=== PATIENT | female | born 2000 | race American Indian/Alaskan Native ===

== ENCOUNTER 2021-12-02 04:50 | Emergency (ER) | payer OTHER ==
[2021-12-02] MEDS ORDERED: LORazepam 1 MG TAB PO ONE (04:54)
[2021-12-02 04:57] VITALS: BP 170/98
--- NOTE | 2021-12-02 04:59 | Emergency Department Report ---
ED Anxiety HPI - General Stated Complaint: ANXIETY Time Seen by Provider: 12/02/21 04:54 Source: patient, EMS Mode of arrival: Ambulatory Limitations: No Limitations - History of Present Illness Initial Comments: 21 years old with history of bipolar chronic PTSD anxiety , on meds for it but recently she was kicked out of her home situation and became homless and stopped taking meds because she has BV and on meds for it no SI or HI MD Complaint: anxiety, heart racing -: Gradual, days(s) Symptoms: palpitations Place: other (homeless ) Associated symptoms: palpitations ED Review of Systems ROS: Stated complaint: ANXIETY Other details as noted in HPI Constitutional: denies: chills, fever Eyes: denies: eye pain, eye discharge, vision change ENT: denies: ear pain, throat pain Respiratory: denies: cough, shortness of breath, wheezing Cardiovascular: denies: chest pain, palpitations Endocrine: no symptoms reported Gastrointestinal: denies: abdominal pain, nausea, diarrhea Genitourinary: denies: urgency, dysuria, discharge Musculoskeletal: denies: back pain, joint swelling, arthralgia Skin: denies: rash, lesions Neurological: denies: headache, weakness, paresthesias Psychiatric: denies: anxiety, depression Hematological/Lymphatic: denies: easy bleeding, easy bruising ED Past Medical Hx - Past Medical History Hx Psychiatric Treatment: Yes ED Physical Exam - General General appearance: alert, in no apparent distress - Head Head exam: Present: atraumatic, normocephalic - Eye Eye exam: Present: normal appearance - ENT ENT exam: Present: mucous membranes moist - Neck Neck exam: Present: normal inspection - Respiratory Respiratory exam: Present: normal lung sounds bilaterally. Absent: respiratory distress - Cardiovascular Cardiovascular Exam: Present: regular rate, normal rhythm. Absent: systolic murmur, diastolic murmur, rubs, gallop - GI/Abdominal GI/Abdominal exam: Present: soft, normal bowel sounds - Extremities Exam Extremities exam: Present: normal inspection - Back Exam Back exam: Present: normal inspection - Neurological Exam Neurological exam: Present: alert, oriented X3 - Psychiatric Psychiatric exam: Present: anxious. Absent: depressed, agitated, homicidal ideation, suicidal ideation - Skin Skin exam: Present: warm, dry, intact, normal color. Absent: rash Critical care attestation.: If time is entered above; I have spent that time in minutes in the direct care of this critically ill patient, excluding procedure time. ED Disposition Clinical Impression: Anxiety Disposition: HOME / SELF CARE / HOMELESS Is pt being admited?: No Does the pt Need Aspirin: No Condition: Stable Instructions: Supporting Someone With Anxiety, Managing Anxiety, Adult
== END 2021-12-02 05:21 | disposition home or self-care (01) ==
LOC: ED 04:50
DX: F41.9 Anxiety disorder, unspecified (principal); F31.9 Bipolar disorder, unspecified; F43.12 Post-traumatic stress disorder, chronic
CPT/HCPCS: 99283

== ENCOUNTER 2021-12-08 01:04 | Emergency (ER) | payer OTHER ==
[2021-12-08 01:08] VITALS: BP 129/81
[2021-12-08 05:31] LABS: Bilirubin,Urine NEG (Negative); Blood,Urine NEG (Negative); Color,Urine Straw (Yellow); Mucus,Urine FEW /HPF; Protein,Urine <15 mg/dL mg/dL (Negative); Urobilinogen,Urine < 2.0 mg/dL (<2.0)
[2021-12-08 05:33] LABS: HCG Qualitative,Urine Negative (Negative)
--- NOTE | 2021-12-08 05:46 | Emergency Department Report ---
ED Female HPI - General Chief complaint: Chest Pain Stated complaint: CHEST PAIN Source: EMS Mode of arrival: Ambulatory Limitations: No Limitations - History of Present Illness Initial comments: Patient is a A0 21-year-old -[place] female with a history of panic attacks, anxiety and depression, heart murmur, PTSD, bipolar disorder, personality disorder who presents to the ED with complaint of acute onset persistent vaginal discharge for the last 1 week. Patient also states that she has been homeless for the last 1 month and has been sleeping in different sh elters but in the last 2 weeks she has been on the street with no place to go. Patient states that her 9-month-old daughter was also taken from her. Patient states that her anxiety has worsened in the last 1 week. Patient denies suicidal or homicidal ideation, hallucination, delusional thoughts, change in vision, nausea, vomiting, chest pain, shortness of breath, abdominal pain, fever, chills, cough, sore throat or change in vision, dysuria, urinary frequency and urgency and vaginal bleeding. MD Complaint: vaginal discharge, other (wants to be checked for Bacterial vaginosis, trichomonas; ant smedication refills for anxiety) -: Sudden, week(s) (2) Location: other (vaginal) Severity: mild Severity scale (0 -10): 0 Quality: dull Consistency: intermittent Improves with: none Worsens with: none Are you Now?: No Associated Symptoms: denies other symptoms, vaginal discharge, other (anxiety). denies: vaginal bleeding, abdominal pain, fever/chills, headaches, dysuria, hematuria, rash, seizure, shortness of breath, syncope, weakness - Related Data Sexually active: Yes : 1 Para: 1 A: 0 Previous Rx's Medication Instructions Recorded Last Taken Type Gabapentin 300 mg PO BID #60 cap 12/08/21 Unknown Rx Venlafaxine HCl [Venlafaxine] 50 mg PO DAILY #30 tab 12/08/21 Unknown Rx metroNIDAZOLE [Flagyl] 500 mg PO Q12HR #14 tab 12/08/21 Unknown Rx Allergies Allergy/AdvReac Type Severity Reaction Status Date / Time No Known Allergies Allergy Verified 12/08/21 01:09 ED Review of Systems ROS: Stated complaint: CHEST PAIN Other details as noted in HPI Constitutional: malaise. denies: chills, fever Eyes: denies: eye pain, eye discharge, vision change ENT: denies: ear pain, throat pain Respiratory: denies: cough, shortness of breath, wheezing Cardiovascular: denies: chest pain, palpitations Endocrine: no symptoms reported Gastrointestinal: denies: abdominal pain, nausea, vomiting, diarrhea Genitourinary: discharge. denies: urgency, dysuria, frequency, hematuria Musculoskeletal: denies: back pain, joint swelling, arthralgia Skin: denies: rash, lesions Neurological: denies: headache, weakness, paresthesias Psychiatric: anxiety, depression. denies: auditory hallucinations, visual hallucinations, homicidal thoughts, suicidal thoughts Hematological/Lymphatic: denies: easy bleeding, easy bruising ED Past Medical Hx - Past Medical History Previous Medical History?: Yes Hx Psychiatric Treatment: Yes (anxiety, depression, Personality d/o; PTSD, Bipolar) Additional medical history: PTSD, ANXIETY, BORDERLINE PERSONALITY DISORDER, BIPOLAR, TREMORS; heart murmur - Social History Smoking Status: Current Every Day Smoker Substance Use Type: Alcohol - Medications Home Medications: Home Medications Medication Instructions Recorded Confirmed Last Taken Type Gabapentin 300 mg PO BID #60 cap 12/08/21 Unknown Rx Venlafaxine HCl [Venlafaxine] 50 mg PO DAILY #30 tab 12/08/21 Unknown Rx metroNIDAZOLE [Flagyl] 500 mg PO Q12HR #14 tab 12/08/21 Unknown Rx ED Physical Exam - General Limitations: No Limitations General appearance: alert, in no apparent distress, anxious, other (homelessness) - Head Head exam: Present: atraumatic, normocephalic, normal inspection - Eye Eye exam: Present: normal appearance, PERRL, EOMI Pupils: Present: normal accommodation - ENT ENT exam: Present: normal exam, normal orophraynx, mucous membranes moist, TM's normal bilaterally, normal external ear exam - Neck Neck exam: Present: normal inspection, full ROM - Respiratory Respiratory exam: Present: normal lung sounds bilaterally. Absent: respiratory distress, wheezes, rales, rhonchi, stridor, chest wall tenderness, accessory muscle use, decreased breath sounds, prolonged expiratory - Cardiovascular Cardiovascular Exam: Present: normal rhythm, tachycardia, normal heart sounds. Absent: systolic murmur, diastolic murmur, rubs, gallop - GI/Abdominal GI/Abdominal exam: Present: soft, normal bowel sounds. Absent: tenderness, guarding, rebound, hyperactive bowel sounds, organomegaly - Extremities Exam Extremities exam: Present: normal inspection, full ROM, normal capillary refill - Back Exam Back exam: Present: normal inspection, full ROM. Absent: tenderness, CVA tenderness (R), CVA tenderness (L), muscle spasm, paraspinal tenderness, vertebral tenderness - Neurological Exam Neurological exam: Present: alert, oriented X3, CN II-XII intact, normal gait, reflexes normal - Psychiatric Psychiatric exam: Present: depressed, anxious, flat affect. Absent: homicidal ideation, suicidal ideation - Skin Skin exam: Present: warm, dry, intact, normal color. Absent: rash ED Course Vital Signs 12/08/21 12/08/21 01:08 05:53 Temperature 98.1 F Pulse Rate 108 H 90 Respiratory 16 Rate Blood Pressure 129/81 [Left] O2 Sat by Pulse 100 100 Oximetry ED Medical Decision Making - Medical Decision Making This is a A0 21-year-old -[place] female with a history of panic attacks, anxiety and depression, heart murmur, PTSD, bipolar disorder, personality disorder who presents to the ED with complaint of acute onset persistent vaginal discharge for the last 1 week. Patient also states that she has been homeless for the last 1 month and has been sleeping in different shelters but in the last 2 weeks she has been on the street with no place to go. Patient states that her 9-month-old daughter was also taken from her. Patient states that her anxiety has worsened in the last 1 week. In the ED, patient is alert and oriented x3 and is not in any distress. Patient is however anxious, depressed but has no suicidal or homicidal ideations nor having any delusional thoughts or hallucinations. Urinalysis was unremarkable and urine test was negative. Wet prep test was negative for trichomonas and yeast but positive for Gardnerella vaginalis consistent with bacterial vaginosis. Patient was discharged home on medications and advised to follow-up with her primary care physician in 7 to 10 days for reevaluation. Patient is advised return to the ED immediately if symptoms get worse. - Differential Diagnosis Anxiety; depression; homelessness; Bacterial vaginosis; STD Critical care attestation.: If time is entered above; I have spent that time in minutes in the direct care of this critically ill patient, excluding procedure time. ED Disposition Clinical Impression: Adjustment disorder with mixed anxiety and depressed mood, Bacterial vaginosis, Unsheltered homelessness Disposition: HOME / SELF CARE / HOMELESS Is pt being admited?: No Does the pt Need Aspirin: No Condition: Stable Instructions: Generalized Anxiety Disorder, Adult, Bacterial Vaginosis, [id number], Bacterial Vaginosis (ED) Additional Instructions: Take medication with food, drink plenty fluids and follow-up with your primary care physician in 7 to 10 days for reevaluation. Return to the ED immediately if symptoms get worse. Prescriptions: metroNIDAZOLE [Flagyl] 500 mg PO Q12HR #14 tab Gabapentin 300 mg PO BID #60 cap Venlafaxine HCl [Venlafaxine] 50 mg PO DAILY #30 tab Referrals: [facility] [Provider Group] - 3-5 Days PRIMARY CARE, [Primary Care Provider] - 3-5 Days Forms: STI Treatment and Prevention Time of Disposition: 05:50 Print Language: [id number]
== END 2021-12-08 07:36 | disposition home or self-care (01) ==
LOC: ED 01:04
DX: F41.9 Anxiety disorder, unspecified (principal); N76.0 Acute vaginitis; Z59.00 Homelessness unspecified; F17.200 Nicotine dependence, unspecified, uncomplicated; Z72.89 Other problems related to lifestyle; Z79.899 Other long term (current) drug therapy
CPT/HCPCS: 81001; 81025; 87210; 99283

== ENCOUNTER 2022-01-07 00:07 | Emergency (ER) | payer OTHER ==
[2022-01-07 07:38] VITALS: BP 112/64
== END 2022-01-07 08:02 | disposition home or self-care (01) ==
LOC: ED 00:07
DX: Z53.21 Procedure and treatment not carried out due to patient leaving prior to being seen by health care provider (principal); Z59.00 Homelessness unspecified